=== PATIENT | male | born 1950 | race Caucasian/White ===

== ENCOUNTER 2019-05-28 07:12 | Outpatient (CLI) | payer MEDICARE, BC ==
--- NOTE | 2019-05-28 11:07 | NM ---
Radionucleotide stress and rest myocardial perfusion scan with CT can attenuation correction and SPEC T imaging Left ventricular wall motion evaluation and ejection fraction HISTORY: Chest pain. FINDINGS: Lexiscan protocol. FINDINGS: Slightly heterogeneous uptake of radiotracer throughout the left ventricular myocardium. No focal perfusion defect or reversibility. QGS analysis of gated SPECT images shows no focal wall motion abnormalities. Ejection fraction calcul ated at 54%. IMPRESSION: Normal myocardial perfusion scan. Normal LVEF.
[2019-05-28] MEDS ORDERED: Regadenoson 0.4 MG/5 ML SYRINGE ONE (16:06)
== END 2019-05-28 07:13 | disposition home or self-care (01) ==
LOC: NM 07:12
PROVIDERS: ATTEND Internal Medicine
DX: R07.9 Chest pain, unspecified (principal)
CPT/HCPCS: 78452; 93017; A9500; J2785